=== PATIENT | female | born 1995 | race African-American/Black ===

== ENCOUNTER 2017-09-09 19:21 | Emergency (ER) | payer OTHER ==
[~2017-09-09] VITALS: Ht 165.1 cm; Wt 76.4 kg
[~2017-09-09 19:21] MED LIST: ZANTAC150 MG PO
[2017-09-09 20:32] LABS: HEMATOCRIT 37.2 % (36.0-46.0); MCH 32.8 PG (29.0-34.0); MCHC 34.9 G/DL (30.0-36.0); MCV 93.9 FL (83-99); PLATELET COUNT 318 K/uL (156-360); RBC DIS.WIDTH-CV 11.7 % (11.8-14.6); RBC DIS.WIDTH-SD 40.5 % (39-53); RED BLOOD COUNT 3.96 M/uL (3.80-5.20); WHITE BLOOD COUNT 4.3 K/uL (4.1-10.2)
[2017-09-09 20:42] LABS: ALBUMIN 4.1 g/dL (3.2-4.8); CHLORIDE 108 mEq/L (99-109); POTASSIUM 4.2 mEq/L (3.7-5.4); SODIUM 139 mEq/L (136-147)
[2017-09-09 20:44] LABS: GLUCOSE 73 mg/dL (70-99); TOTAL PROTEIN 7.5 g/dL (6.4-8.3)
[2017-09-09 20:46] LABS: TOTAL BILIRUBIN 0.2 mg/dL (0.0-1.0)
[2017-09-09 20:48] LABS: ALKALINE PHOSPHATASE 43 IU/L (3-129); CREATININE 0.9 mg/dL (0.6-1.3); GFR ESTIMATE (CALCULATED) > 59 mL/min/
[2017-09-09 20:49] LABS: UREA NITROGEN (BUN) 16 mg/dL (9-23)
[2017-09-09 20:50] LABS: AST (GOT) 14 IU/L (2-34)
[2017-09-09 20:51] LABS: ALT (GPT) 14 IU/L (3-49); LIPASE 66 U/L (1.0-51.0)
[2017-09-09 20:59] LABS: QUANTITATIVE HCG < 4.0 MIU/ML
[2017-09-09 21:50] LABS: APPEARANCE CLEAR ((CLEAR)); BILIRUBIN NEGATIVE; BLOOD NEGATIVE; COLOR YELLOW ((YELLOW)); GLUCOSE (STRIP) NEGATIVE; KETONES NEGATIVE; LEUKOCYTES NEGATIVE; NITRITE NEGATIVE; PROTEIN (STRIP) NEGATIVE; SPECIFIC GRAVITY 1.025 (1.000-1.030)
[2017-09-09 22:09] LABS: AMPHETAMINE NEGATIVE (500 ng/mL); BARBITURATES NEGATIVE (200 ng/mL); BENZODIAZEPINES NEGATIVE (150 ng/mL); BUPRENORPHINE NEGATIVE (10 ng/mL); COCAINE NEGATIVE (150 ng/mL); METHADONE NEGATIVE (200 ng/mL); METHAMPHETAMINE NEGATIVE (500 ng/mL); OPIATES (MORPHINE) NEGATIVE (100 ng/mL); OXYCODONE NEGATIVE (100 ng/mL); PHENCYCLIDINE NEGATIVE (25 ng/mL); PROPOXYPHENE NEGATIVE (300 ng/mL); THC CANNABINOIDS NEGATIVE (50 ng/mL); TRICYCLIC ANTIDEPRESSANTS NEGATIVE (300 ng/mL)
[2017-09-09 22:35] VITALS: BP 115/78
== END 2017-09-09 22:35 | disposition home or self-care (01) ==
LOC: EME 19:21
PROVIDERS: Nurse Practitioner Family
DX: R56.9 Unspecified convulsions (principal); R51 Headache; R61 Generalized hyperhidrosis; H54.7 Unspecified visual loss; Z73.3 Stress, not elsewhere classified; I49.9 Cardiac arrhythmia, unspecified
CPT/HCPCS: 70450; 80053; 81003; 83690; 84702; 85027; 93005; 99281; 99285

== ENCOUNTER → 2017-09-22 | Outpatient (CLI) | payer OTHER | END | disposition home or self-care (01) | LOC: EEG 09:58 | DX: R56.9 Unspecified convulsions (principal) | CPT/HCPCS: 95954 ==